=== PATIENT | male | born 2000 | race African-American/Black ===

== ENCOUNTER 2022-07-14 15:24 | Emergency (ER) | payer OTHER | END 2022-07-14 17:42 | disposition home or self-care (01) | LOC: CSHERS 15:24 | DX: J06.9 Acute upper respiratory infection, unspecified (principal) | CPT/HCPCS: 87804; 99283 ==

== ENCOUNTER 2022-10-19 17:54 | Emergency (ER) | payer OTHER | END 2022-10-19 19:35 | disposition home or self-care (01) | LOC: CSHERS 17:54 | DX: R05.9 Cough, unspecified (principal) | CPT/HCPCS: 99283 ==